=== PATIENT | female | born 1965 | race Caucasian/White ===

== ENCOUNTER 2022-10-31 11:49 | Outpatient (CLI) | payer SELFPAY ==
[2022-10-31 10:48] LABS: Albumin* 3.3 g/dL (3.3-5.0); Chloride* 99 mmol/L (96-114)
[2022-10-31 10:49] LABS: Potassium* 3.6 mmol/L (3.6-5.1); Sodium* 133 mmol/L (135-149)
[2022-10-31 10:51] LABS: Aspartate Amino Transferase* 25 U/L (12-35); Carbon Dioxide* 28 mmol/L (20-32); Cholesterol* 123 mg/dL (90-199); Creatinine* 0.4 mg/dL (0.5-1.5); Estimated Glomerular Filt Rate 117 ml/min; Total Protein* 6.6 g/dL (6.0-8.3)
[2022-10-31 10:52] LABS: Alanine Aminotransferase* 19 U/L (4-35); Alkaline Phosphatase* 80 U/L (40-150); Blood Urea Nitrogen* 9 mg/dL (7-30); Calcium* 9.1 mg/dL (8.4-10.6); Glucose* 182 mg/dL (60-115); HDL Cholesterol* 16 mg/dL (>=50); LDL Cholesterol Calculated 79 mg/dL (<100); Triglycerides* 142 mg/dL (40-149)
[2022-10-31 11:10] LABS: Creatinine Urine 97.1 mg/dL
[2022-10-31 11:14] LABS: Microalbumin Creatinine Ratio 60 mg/g (0-30); Microalbumin Urine 6 mg/dL
[2022-11-01 11:17] LABS: Free T4 Free Thyroxine* 1.43 ng/dL (0.70-1.85)
== END 2022-10-31 11:50 | disposition home or self-care (01) ==
PROVIDERS: PCP Family Medicine; Visit Provider Family Medicine
DX: E11.9 Type 2 diabetes mellitus without complications (principal); E03.9 Hypothyroidism, unspecified
CPT/HCPCS: 80053; 80061; 82043; 82570; 84439; 84443

== ENCOUNTER 2022-11-03 06:56 | Outpatient (CLI) | payer SELFPAY | END 2022-11-03 06:57 | disposition home or self-care (01) | LOC: AMB 11-07 09:14 | PROVIDERS: PCP Family Medicine; Visit Provider Family Medicine | DX: M79.604 Pain in right leg (principal) | CPT/HCPCS: A0425; A0427 ==

== ENCOUNTER 2022-11-03 07:30 | Inpatient (IN) | payer SELFPAY ==
[2022-11-03] VITALS (29 sets, daily range): BP systolic 76–120; BP diastolic 43–72; PULSE 89–110; RESP 16–20; TEMP 36.9–38.4; O2SAT 91–100; BMI 28.3; BMI 33.7
--- NOTE | 2022-11-03 08:23 | CRLHL7_ITS ---
For Patients: As a result of the Cures Act, medical imaging exams and procedure reports are released immediately into your electronic medical record. You may view this report before your referring provider. If you have questions, please contact your health care provider. Indication: Pain. Technique: A total of two views of the right knee were acquired. Comparison: None Findings: No acute fracture, dislocation destructive process. Mild osteoarthritis laterally, moderate osteoarthritis medially and moderate osteoarthritis in the superior patellofemoral compartment. Small joint effusion. Impression: Osteoarthritis most affecting the medial compartment. No acute fracture, dislocation or destructive process. Small joint effusion. Dictated by Rodger Pereyra MD @ 11/03/2022 9:49:16 AM (Electronically Signed)
--- NOTE | 2022-11-03 08:23 | CRLHL7_ITS ---
For Patients: As a result of the Cures Act, medical imaging exams and procedure reports are released immediately into your electronic medical record. You may view this report before your referring provider. If you have questions, please contact your health care provider. Indication: Pain and swelling right lower extremity Technique: Grayscale, grayscale compression, color Doppler, spectral Doppler and augmentation technique was utilized as per protocol to evaluate the right lower extremity deep venous system. Comparison: Findings: Occlusive thrombus is identified in both peroneal veins. Thrombus is also noted in the popliteal vein which is partially occlusive. Fluid is noted near the patella which is probably related to a joint effusion. Impression: Occlusive thrombus in both peroneal veins. Thrombus is also noted in the popliteal vein which is partially occlusive Dictated by Rodger Pereyra MD @ 11/03/2022 9:32:05 AM (Electronically Signed)
--- NOTE | 2022-11-03 08:23 | ED.GENADULT ---
HPI - General Adult General Time Seen by Provider: 08:23 Date Seen: 11/03/22 Chief complaint: Extremity Pain/Injury, Lower Stated complaint: Knee Pain Time Seen by Provider: 11/03/22 08:09 Source: patient, EMS and RN notes reviewed Mode of arrival: EMS Limitations: no limitations History of Present Illness HPI narrative: Patient is a 57-year-old female brought in by ambulance with knee pain. She states it is hurting to stand and bend the knee. It started hurting on Monday. She carries a diagnosis of arthritis in her neck but has not been told she has arthritis of her knee. She denies any trauma. Does not remember doing any twisting or anything that aggravated her knee. The pain goes from the knee down into the calf. She is worried about a blood clot. No shortness of breath. Her family is with her. Her daughter brings up that patient is developing an eating disorder and once this noted. Patient states she has just really not that hungry and states there is no eating disorder. Reviewed with them that this may be a whole separate non emergent medical issue. Patient's problem list is reviewed. Did discuss with them that they very well may need to follow up this separate issue in clinic which they do understand. As for her knee pain, no other joints are bothering her at this time. She feels like it might be swollen. There are no fevers or chills. Pain is not coming from the back. Related Data Home Medications Medication Instructions Recorded Confirmed aspirin 325 mg tablet,delayed 325 mg PO DAILY 06/13/22 11/03/22 release blood sugar diagnostic (Contour 06/13/22 Next Test Strips) blood-glucose meter (Contour Next 06/13/22 EZ Meter) glimepiride 1 mg tablet 1 mg PO DAILY 06/13/22 11/03/22 lancets 30 gauge (BD Ultra-Fine II 06/13/22 Lancets) metformin 500 mg tablet,extended 1,000 mg PO BIDWM 06/13/22 11/03/22 release 24 hr rosuvastatin 10 mg tablet 10 mg PO DAILY 06/13/22 11/03/22 levothyroxine 200 mcg tablet 200 mcg PO Q48H 11/03/22 11/03/22 levothyroxine 25 mcg tablet 12.5 mcg PO Q48H 11/03/22 11/03/22 Allergies Allergy/AdvReac Type Severity Reaction Status Date / Time No Known Allergies Allergy Unknown Unverified 10/31/22 15:57 Review of Systems Status of ROS: Reports: 6 or more systems reviewed and unremarkable except as noted in History and below [facility] Medical History Contusion of thorax Open wound of breast with complication (08/02/11) Surgical History History of 2 sections (2005) History of lumpectomy (2010) Family History Father Diabetes Throat cancer Brother Colon cancer Social History Narrative: Does not drink alcohol Does not have regular exercise regimen , 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, 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 Non-smoker Uninsured Smoking Status: Never smoker Do you use any of these nicotine containing products: None Non-prescribed substance use: denies use Exam Const: Vital Signs, click to edit/add: Vital Signs - 24 hr 11/03/22 07:54 11/03/22 08:24 11/03/22 07:40 Temperature 99.1 F Pulse Rate Pulse Rate [Right Pulse Oximeter] 108 H 110 H Respiratory Rate 16 Blood Pressure Blood Pressure [Le ft Upper Arm] 120/72 120/72 Pulse Oximetry 100 97 100 Oxygen Delivery Me thod Room Air Room Air 11/03/22 10:30 11/03/22 11:00 11/03/22 11:30 Temperature Pulse Rate Pulse Rate [Right Pulse Oximeter] 97 95 93 Respiratory Rate Blood Pressure Blood Pressure [Le ft Upper Arm] 98/61 95/48 L 95/59 L Pulse Oximetry 96 95 97 Oxygen Delivery Me thod Room Air Room Air Room Air 11/03/22 12:00 11/03/22 12:30 11/03/22 13:00 Temperature Pulse Rate Pulse Rate [Right Pulse Oximeter] 94 90 99 Respiratory Rate Blood Pressure Blood Pressure [Le ft Upper Arm] 92/53 L 89/60 L 111/60 Pulse Oximetry 96 96 96 Oxygen Delivery Me thod Room Air Room Air Room Air 11/03/22 13:12 11/03/22 13:30 11/03/22 13:32 Temperature Pulse Rate 95 93 92 Pulse Rate [Right Pulse Oximeter] Respiratory Rate Blood Pressure 84/47 L Blood Pressure [Le ft Upper Arm] Pulse Oximetry 97 98 98 Oxygen Delivery Me thod 11/03/22 14:00 11/03/22 14:01 11/03/22 14:03 Temperature Pulse Rate 92 92 92 Pulse Rate [Right Pulse Oximeter] Respiratory Rate Blood Pressure 76/43 L Blood Pressure [Le ft Upper Arm] Pulse Oximetry 97 97 98 Oxygen Delivery Me thod 11/03/22 14:08 11/03/22 14:09 11/03/22 14:30 Temperature Pulse Rate 91 91 89 Pulse Rate [Right Pulse Oximeter] Respiratory Rate Blood Pressure 77/49 L Blood Pressure [Le ft Upper Arm] Pulse Oximetry 97 97 98 Oxygen Delivery Me thod 11/03/22 14:31 Temperature Pulse Rate 90 Pulse Rate [Right Pulse Oximeter] Respiratory Rate Blood Pressure 79/47 L Blood Pressure [Le ft Upper Arm] Pulse Oximetry 98 Oxygen Delivery Me thod Documenting provider has reviewed patient's vital signs: yes Common normals: no apparent distress, oriented x3, no limitations, healthy appearing, alert and well nourished General appearance: cooperative, comfortable and well kempt Nutritional appearance: overweight HENMT: Common normals: normocephalic, head/scalp atraumatic and hearing grossly normal bilaterally Head and scalp: normocephalic and atraumatic Eye: Common normals: PERRL, EOMs intact bilaterally, conjunctivae normal and no scleral icterus Conjunctiva: conjunctiva(e) normal Pupil: PERRL Neck & C-Spine: Common normals: full ROM, no lymphadenopathy, supple, no meningeal signs, no JVD and thyroid normal Thyroid: thyroid normal Resp: Common normals: normal respiratory effort, no retractions, no use of accessory muscles and clear to auscultation bilaterally Auscultation: clear to auscultation bilaterally Cardio: Common normals: no JVD, regular rate, regular rhythm, S1 normal heart sound, S2 normal heart sound, no gallops, no clicks and no murmurs Rate: regular rate Rhythm: regular rhythm Heart sounds: S1 normal and S2 normal GI: Common normals: Normal to inspection, nondistended, normoactive bowel sounds present and soft to palpation Palpation: soft Extremity: Other: Both lower extremities visualized. There is no lower extremity edema, no pitting edema on either side. Negative Homans on the right calf. She complains of tenderness posteriorly with in the left popliteal fossa. She complains of pain with range of motion of the knee. I do not find any palpable knee effusion. The patella tracks intact and is nontender. There is no erythema, no warmth. Vascularity and sensation of this extremity seem to be normal. Neuro: Common normals: oriented x3 Sensorium/orientation: alert Meningeal signs: no meningeal signs Psych: Appearance: well kempt Course Course Hospital Course: Patient is worried about a blood clot, she cries and states that she is so worried. I reassured her that we will take care of her. Reviewed that I do think we should x-ray her knee. Reviewed that arthritis is a common finding in people an there can be flares with pain. We did talk of Blair's cyst. Certainly we will get an ultrasound. I think an x-ray and ultrasound are appropriate initial evaluation. She does not have any significant effusion on my examination which would make this less likely to be other etiologies for knee pain such is inflammatory arthritis outside of osteoarthritis, infectious etiologies. She is afebrile. Reevaluation(s) Reevaluation #1: Reviewed with patient that the radiologist had called me in there indeed is DVT within the right leg. He did see a joint effusion on the ultrasound but stated that he cannot tie that in with a DVT obviously. We are waiting her formal x-ray result of her knee, I do see some medial joint space narrowing but again will await Radiology over-read. She states she received morphine in the rig, pain is bothering her on the leg, is wondering if she will get pain meds on discharge. Did review with her that we can certainly address that. We did discuss she will need to go on blood thinners. We are going to do chest CT PE protocol, she was tachycardic when she came in and now was at rest in the upper 90s for pulse. Will get EKG, CBC and troponin, chest CT PE protocol. She has an IV in place from EMS. Reviewed her labs from October 31, chemistries specifically. Her creatinine was fine. Diabetes was not controlled. She states over the last month her vision has deteriorated, symmetric in her eyes. Reviewed with her it certainly could be uncontrolled diabetes. She will likely need an eye exam which I cannot provide here. Time: 09:44 Reevaluation #2: Reviewed cirrhosis on CT, no PE, she has known hx of fatty liver per report. Reviewed that certainly could be the cause but it is not certain at this point, will need to see GI specialist/liver specialist at some point, may end up being outpatient. Time: 12:47 Consultations Consultation #1: Spoke with Dr. Patino the manager hotel at [place] regarding case. He had some recommendations for further labs. He did want an LDH but reviewed with him it is a send out for us right now. He also recommended a peripheral smear. We discussed some other labs. I will update her liver and kidney functions for today. He was wondering if she might be a candidate for IVC filter, possibly tips procedure. He stated he wondered if there were further underlying issues with her. It is possible she is sequestering due to the portal hypertension in the splenomegaly but needed further labs. He would consider anticoagulation. We will get coags as those had not been ordered. We were not aware of her cirrhosis, this seems to be a new diagnosis for her. He recommended that she be hospitalized ideally where there was GI in multi-specialty care but to date, place as we have called cannot accommodate. Time: 12:49 Consultation #2: Did speak with Dr. Patino again, our hospitalist Dr. Galo was here. She wondered if the patient could go on Lovenox instead of heparin. He stated that would be fine. He recommended half dose Lovenox given her CBC though and to monitor this to see if she would tolerated. Besides the DVT, she may have some underlying splenic infarcts seen on her CT. We have called all appropriate higher level care facilities within are regions that we can safely transfer with our current whether cycle. There is no capacity at any of these institutions. Patient is aware that she is going to be hospitalized here. She has been complaining of leg pain, did give her pain management, some Ativan for anxiety during her time in the ER. Time: 15:35 Vital Signs Vital signs: Initial Vital Signs Pulse Rate 110 H 11/03/22 07:40 Blood Pressure 120/72 11/03/22 07:40 Blood Pressure Mean 88 11/03/22 07:40 Pulse Oximetry 100 11/03/22 07:40 Oxygen Delivery Method 11/03/22 07:40 Vital Signs Pulse Rate 110 H 11/03/22 07:40 Blood Pressure 120/72 11/03/22 07:40 Pulse Oximetry 100 11/03/22 07:40 Oxygen Delivery Method 11/03/22 07:40 Temperature 99.1 F 11/03/22 07:54 Pulse Rate 90 11/03/22 14:31 Respiratory Rate 16 11/03/22 07:54 Blood Pressure 79/47 L 11/03/22 14:31 Pulse Oximetry 98 11/03/22 14:31 Oxygen Delivery Method 11/03/22 13:00 Medical Decision Making Lab Data Lab results reviewed: Yes I reviewed the patient's lab results Labs: Lab Results 11/03/22 11/03/22 11/03/22 Range/Units 10:12 10:12 10:12 WBC 4.72 (4.50-11.00) K/uL RBC 3.65 L (4.00-5.20) m/uL Hgb 8.4 L (12.0-16.0) gm/dL Hct 27.1 L (33.0-51.0) % MCV 74 L (80-100) fL MCH 23 L (26-34) pg MCHC 31 L (32-36) gm/dL RDW Coeff of Brandi 18.2 H (11.5-15.5) % Plt Count 54 L (140-440) K/uL Neut % (Auto) 83.8 H (42.0-72.0) % Lymph % (Auto) 9.1 L (20-44) % [place] % (Auto) 5.7 (0.0-11.0) % Eos % (Auto) 0.4 (0.0-7.0) % Baso % (Auto) 0.6 (0.0-3.0) % Neut # (Auto) 4.00 (1.7-7.0) K/uL Lymph # (Auto) 0.40 L (0.90-2.90) K/uL [place] # (Auto) 0.30 (0.00-0.90) K/UL Eos # (Auto) 0.02 (0.00-0.50) K/uL Baso # (Auto) 0.03 (0.00-0.30) K/uL Absolute Retic 0.08 (0.03-0.08) # Percent Retic 2.2 H (0.5-2.0) % Immature Retic Fraction 23.7 H (3.0-15.9) % Retic Hgb Equivalent 25.1 L (29.0-35.0) pg INR (0.91-1.10) APTT (23-33) Seconds Iron (37-170) ug/dL TIBC (265-497) ug/dL % Saturation (20-50) % Ferritin 89.1 (11.1-264.0) ng/mL Total Bilirubin (0.1-1.5) mg/dL Direct Bilirubin (0.0-0.5) mg/dL AST (12-35) U/L ALT (4-35) U/L Alkaline Phosphatase (40-150) U/L Ammonia (13.1-30.0) umol/L Lactate Dehydrogenase (120-246) U/L Total Protein (6.0-8.3) g/dL Albumin (3.3-5.0) g/dL SARS-CoV-2 (PCR) (Negative) POC Troponin I 0.01 (0.01-0.04) ng/ml 11/03/22 11/03/22 11/03/22 Range/Units 10:12 10:12 10:12 WBC (4.50-11.00) K/uL RBC (4.00-5.20) m/uL Hgb (12.0-16.0) gm/dL Hct (33.0-51.0) % MCV (80-100) fL MCH (26-34) pg MCHC (32-36) gm/dL RDW Coeff of Brandi (11.5-15.5) % Plt Count (140-440) K/uL Neut % (Auto) (42.0-72.0) % Lymph % (Auto) (20-44) % [place] % (Auto) (0.0-11.0) % Eos % (Auto) (0.0-7.0) % Baso % (Auto) (0.0-3.0) % Neut # (Auto) (1.7-7.0) K/uL Lymph # (Auto) (0.90-2.90) K/uL [place] # (Auto) (0.00-0.90) K/UL Eos # (Auto) (0.00-0.50) K/uL Baso # (Auto) (0.00-0.30) K/uL Absolute Retic (0.03-0.08) # Percent Retic (0.5-2.0) % Immature Retic Fraction (3.0-15.9) % Retic Hgb Equivalent (29.0-35.0) pg INR (0.91-1.10) APTT (23-33) Seconds Iron 11 L (37-170) ug/dL TIBC 314 (265-497) ug/dL % Saturation 4 L (20-50) % Ferritin (11.1-264.0) ng/mL Total Bilirubin 1.2 (0.1-1.5) mg/dL Direct Bilirubin 0.6 H (0.0-0.5) mg/dL AST 82 H (12-35) U/L ALT 34 (4-35) U/L Alkaline Phosphatase 87 (40-150) U/L Ammonia 10.0 L (13.1-30.0) umol/L Lactate Dehydrogenase (120-246) U/L Total Protein 6.1 (6.0-8.3) g/dL Albumin 2.9 L (3.3-5.0) g/dL SARS-CoV-2 (PCR) (Negative) POC Troponin I (0.01-0.04) ng/ml 11/03/22 11/03/22 11/03/22 Range/Units 10:12 12:00 12:58 WBC (4.50-11.00) K/uL RBC (4.00-5.20) m/uL Hgb (12.0-16.0) gm/dL Hct (33.0-51.0) % MCV (80-100) fL MCH (26-34) pg MCHC (32-36) gm/dL RDW Coeff of Brandi (11.5-15.5) % Plt Count (140-440) K/uL Neut % (Auto) (42.0-72.0) % Lymph % (Auto) (20-44) % [place] % (Auto) (0.0-11.0) % Eos % (Auto) (0.0-7.0) % Baso % (Auto) (0.0-3.0) % Neut # (Auto) (1.7-7.0) K/uL Lymph # (Auto) (0.90-2.90) K/uL [place] # (Auto) (0.00-0.90) K/UL Eos # (Auto) (0.00-0.50) K/uL Baso # (Auto) (0.00-0.30) K/uL Absolute Retic (0.03-0.08) # Percent Retic (0.5-2.0) % Immature Retic Fraction (3.0-15.9) % Retic Hgb Equivalent (29.0-35.0) pg INR 1.43 H (0.91-1.10) APTT 37 H (23-33) Seconds Iron (37-170) ug/dL TIBC (265-497) ug/dL % Saturation (20-50) % Ferritin (11.1-264.0) ng/mL Total Bilirubin (0.1-1.5) mg/dL Direct Bilirubin (0.0-0.5) mg/dL AST (12-35) U/L ALT (4-35) U/L Alkaline Phosphatase (40-150) U/L Ammonia (13.1-30.0) umol/L Lactate Dehydrogenase 194 (120-246) U/L Total Protein (6.0-8.3) g/dL Albumin (3.3-5.0) g/dL SARS-CoV-2 (PCR) Negative SARS-CoV-2 (Negative) POC Troponin I (0.01-0.04) ng/ml Imaging Data Venous US: Attestation: I have reviewed the pertinent imaging results. Radiologist's impression: Patient: HEATHER DELAROSA Facility:?[facility] Patient ID:?[id number] Site Patient ID:?[id number]. Site :?[id number] Study:?US Extremity Right DVT-11/03/2022 9:20:00 AM Ordering Physician:?Mirza Daily Final Report: Indication: Pain and swelling right lower extremity Technique: Grayscale, grayscale compression, color Doppler, spectral Doppler and augmentation technique was utilized as per protocol to evaluate the right lower extremity deep venous system. Comparison: Findings: Occlusive thrombus is identified in both peroneal veins. Thrombus is also noted in the popliteal vein which is partially occlusive. Fluid is noted near the patella which is probably related to a joint effusion. Impression: Occlusive thrombus in both peroneal veins. Thrombus is also noted in the popliteal vein which is partially occlusive Dictated by Rodger Pereyra MD @ 11/03/2022 9:32:05 AM ----- ADDENDUM ----- I discussed this case with at 9:35 a.m. on November 03, 2022. Dictated by Rodger Pereyra MD @ Nov 03 2022 9:32AM (Electronic Signature) X-ray right knee: Attestation: I have reviewed the pertinent imaging results. My impression: I see medial joint space narrowing on my preliminary review of this x-ray, otherwise no fracture or other abnormalities. Await Radiology over-read. Radiologist's impression: Patient: HEATHER DELAROSA Facility:?[facility] Patient ID:?[id number] Site Patient ID:?[id number]. Site :?1965 Study:?XRay Knee Right 2v-11/03/2022 9:31:32 AM Ordering Physician:Fatoumata Daily Final Report: Indication: Pain. Technique: A total of two views of the right knee were acquired. Comparison: None Findings: No acute fracture, dislocation destructive process. Mild osteoarthritis laterally, moderate osteoarthritis medially and moderate osteoarthritis in the superior patellofemoral compartment. Small joint effusion. Impression: Osteoarthritis most affecting the medial compartment. No acute fracture, dislocation or destructive process. Small joint effusion. Dictated by Rodger Pereyra MD @ 11/03/2022 9:49:16 AM (Electronic Signature) CT scan - chest: Attestation: I have reviewed the pertinent imaging results. Radiologist's impression: Patient: HEATHER DELAROSA Facility:?[facility] Patient ID:?[id number] Site Patient ID:?[id number]. Site :?1965 Study:?CT Chest Angio PE PROTOCOL W/95CC [id number]/22/2022 11:06:57 AM Ordering Physician:?Mirza Daily Final Report: INDICATION: New onset DVT; tachycardia; rule out PE. COMPARISON: CT chest without intravenous contrast October 16, 2019. TECHNIQUE: CT chest with intravenous contrast; coronal and sagittal reformats. FINDINGS: No evidence of acute or chronic pulmonary thromboembolism. No evidence of aortic aneurysm or dissection. Normal size cardiac silhouette without any pericardial effusion. No evidence of pleural effusion or chest wall pathology. No endobronchial pathology. Limited CT through the upper abdomen reveals evidence of splenomegaly and large volume abdominal ascites. Hydronephrosis right kidney. IMPRESSION: 1. No evidence of pulmonary thromboembolism. 2. Large volume abdominal ascites, splenomegaly and right-sided hydronephrosis. Please note that all CT scans at this facility use dose modulation, iterative reconstruction, and/or weight-based dosing when appropriate to reduce radiation dose to as low as reasonably achievable. Dictated by Trina Charles MD @ 11/03/2022 11:53:59 AM (Electronic Signature) CT scan - abdomen: Attestation: I have reviewed the pertinent imaging results. Radiologist's impression: Patient: HEATHER DELAROSA Facility:?[facility] Patient ID:?[id number] Site Patient ID:?[id number]. Site :?1965 Study:?CT Abdomen/Pelvis W/O-11/03/2022 11:35:49 AM Ordering Physician:?Mirza Daily Final Report: INDICATION: Anemia; anorexia; DVTs; history of cancer. COMPARISON: CT abdomen and pelvis October 16, 2019; CT chest October 16, 2019 and November 03, 2022. TECHNIQUE: CT abdomen and pelvis with intravenous contrast; coronal and sagittal reformats. FINDINGS: Progressive splenomegaly. Multiple low dense lesions identified in the periphery of the spleen; rule out splenic infarcts. Cirrhotic morphology of the liver with evidence of portal hypertension and varices. Abdominal ascites. No pancreatic pathology. Distended gallbladder with cholelithiasis. No adrenal pathology. Hydronephrosis right kidney with hydroureter upper have right ureter. A 9.7 mm obstructing calculus right mid ureter causing the hydronephrosis; no interval change when compared to October 2019. Left kidney is normal in structure and function without any obstructive uropathy or perinephric pathology. No retroperitoneal lymphadenopathy. Diverticulosis sigmoid colon without any CT evidence of diverticulitis or abscess. IMPRESSION: 1. Cirrhotic morphology of the liver with evidence of portal hypertension and portosystemic communication. 2. Splenomegaly possibly with splenic infarcts. 3. Abdominal and pelvic ascites. 4. 10 mm obstructing calculus right mid ureter causing hydronephrosis and hydroureter; stable when compared to October 16, 2019. Please note that all CT scans at this facility use dose modulation, iterative reconstruction, and/or weight-based dosing when appropriate to reduce radiation dose to as low as reasonably achievable. Dictated by Trina Charles MD @ 11/03/2022 12:15:51 PM (Electronic Signature) ECG Data Attestation: I personally reviewed and interpreted this ECG as follows: (Normal sinus rhythm, right bundle branch block. 97 beats per minute, QT corrected 492 milliseconds.) Prior ECG tracings: not available for review Critical Care Time Critical Care Time Critical Care Time: No Discharge Plan Discharge Clinical Impression: Anemia, Cirrhosis of liver with ascites, Thrombocytopenia, Acute deep vein thrombosis (DVT) of right lower extremity Patient Disposition: Admitted As Inpatient Condition: Unchanged Prescriptions: No Action levothyroxine 25 mcg tablet 12.5 mcg PO Q48H Rx Instructions: Use with 200mcg tabs for total every other day dose of 212.5mcg. levothyroxine 200 mcg tablet 200 mcg PO Q48H Rx Instructions: Use with 12.5mcg tabs every other day for total daily dose of 212.5mcg. glimepiride 1 mg tablet 1 mg PO DAILY metformin 500 mg tablet extended release 24 hr 1,000 mg PO BIDWM rosuvastatin 10 mg tablet 10 mg PO DAILY aspirin 325 mg tablet,delayed release (DR/EC) 325 mg PO DAILY (DME) lancets [BD Ultra-Fine II Lancets] 30 gauge misc See Rx Instructions .ROUTE Rx Instructions: As directed (DME) blood-glucose meter [Contour Next EZ Meter] Misc See Rx Instructions .ROUTE Rx Instructions: As directed (DME) Contour Next Test Strips Strip See Rx Instructions .ROUTE Rx Instructions: As directed Follow Up/Referrals: Viky Gan MD [Primary Care Provider] -
--- NOTE | 2022-11-03 09:39 | CRLHL7_ITS ---
For Patients: As a result of the Century Cures Act, medical imaging exams and procedure reports are released immediately into your electronic medical record. You may view this report before your referring provider. If you have questions, please contact your health care provider. INDICATION: New onset DVT; tachycardia; rule out PE. COMPARISON: CT chest without intravenous contrast October 16, 2019. TECHNIQUE: CT chest with intravenous contrast; coronal and sagittal reformats. FINDINGS: No evidence of acute or chronic pulmonary thromboembolism. No evidence of aortic aneurysm or dissection. Normal size cardiac silhouette without any pericardial effusion. No evidence of pleural effusion or chest wall pathology. No endobronchial pathology. Limited CT through the upper abdomen reveals evidence of splenomegaly and large volume abdominal ascites. Hydronephrosis right kidney. IMPRESSION: 1. No evidence of pulmonary thromboembolism. 2. Large volume abdominal ascites, splenomegaly and right-sided hydronephrosis. Please note that all CT scans at this facility use dose modulation, iterative reconstruction, and/or weight-based dosing when appropriate to reduce radiation dose to as low as reasonably achievable. Dictated by Trina Charles MD @ 11/03/2022 11:53:59 AM (Electronically Signed)
[2022-11-03 10:22] LABS: Basophils Absolute Auto 0.03 K/uL (0.00-0.30); Basophils Percent Auto 0.6 % (0.0-3.0); Eosinophils Absolute Auto 0.02 K/uL (0.00-0.50); Eosinophils Percent Auto 0.4 % (0.0-7.0); Hematocrit 27.1 % (33.0-51.0); Hemoglobin* 8.4 gm/dL (12.0-16.0); Immature Granulocytes Abs Auto 0.02 K/uL (0.00-0.30); Immature Granulocytes Pct Auto 0.4 %; Lymphocytes Percent Auto 9.1 % (20-44); Mean Corpuscular HGB Conc 31 gm/dL (32-36); Mean Corpuscular Hemoglobin 23 pg (26-34); Mean Corpuscular Volume 74 fL (80-100); Monocytes Percent Auto 5.7 % (0.0-11.0); Neutrophils Percent Auto 83.8 % (42.0-72.0); Platelet Count* 54 K/uL (140-440); RDW Coefficient of Variation % 18.2 % (11.5-15.5); Red Blood Count 3.65 m/uL (4.00-5.20); White Blood Count* 4.72 K/uL (4.50-11.00)
[2022-11-03 10:23] LABS: Slide Review Reflex No
[2022-11-03] MEDS: LORazepam 2 MG/ML inj 0.5 MG IVP ×2 (10:28→15:35)
[2022-11-03] MEDS: ONDANSETRON 2 MG/ML inj 4 MG IVP (10:28)
[2022-11-03] MEDS: MORPHINE 4 MG/ML INJ 2 MG IVP (10:31)
--- NOTE | 2022-11-03 11:06 | CRLHL7_ITS ---
For Patients: As a result of the Century Cures Act, medical imaging exams and procedure reports are released immediately into your electronic medical record. You may view this report before your referring provider. If you have questions, please contact your health care provider. INDICATION: Anemia; anorexia; DVTs; history of cancer. COMPARISON: CT abdomen and pelvis October 16, 2019; CT chest October 16, 2019 and November 03, 2022. TECHNIQUE: CT abdomen and pelvis with intravenous contrast; coronal and sagittal reformats. FINDINGS: Progressive splenomegaly. Multiple low dense lesions identified in the periphery of the spleen; rule out splenic infarcts. Cirrhotic morphology of the liver with evidence of portal hypertension and varices. Abdominal ascites. No pancreatic pathology. Distended gallbladder with cholelithiasis. No adrenal pathology. Hydronephrosis right kidney with hydroureter upper have right ureter. A 9.7 mm obstructing calculus right mid ureter causing the hydronephrosis; no interval change when compared to October 2019. Left kidney is normal in structure and function without any obstructive uropathy or perinephric pathology. No retroperitoneal lymphadenopathy. Diverticulosis sigmoid colon without any CT evidence of diverticulitis or abscess. IMPRESSION: 1. Cirrhotic morphology of the liver with evidence of portal hypertension and portosystemic communication. 2. Splenomegaly possibly with splenic infarcts. 3. Abdominal and pelvic ascites. 4. 10 mm obstructing calculus right mid ureter causing hydronephrosis and hydroureter; stable when compared to October 16, 2019. Please note that all CT scans at this facility use dose modulation, iterative reconstruction, and/or weight-based dosing when appropriate to reduce radiation dose to as low as reasonably achievable. Dictated by Trina Charles MD @ 11/03/2022 12:15:51 PM (Electronically Signed)
[2022-11-03 11:10] LABS: Iron* 11 ug/dL (37-170)
[2022-11-03 11:19] LABS: Percent Iron Saturation 4 % (20-50); Total Iron Binding Capacity 314 ug/dL (265-497)
[2022-11-03 11:47] LABS: Ferritin* 89.1 ng/mL (11.1-264.0)
[2022-11-03 12:45] LABS: SARS PCR* Negative SARS-CoV-2 (Negative)
[2022-11-03 13:00] LABS: Troponin, Point-of-Care* 0.01 ng/ml (0.01-0.04)
[2022-11-03 13:09] LABS: INR 1.43 (0.91-1.10); Immature Reticulocyte Fraction 23.7 % (3.0-15.9); Prothrombin Time 18.2 Seconds; Reticulocyte Hemoglobin Equivi 25.1 pg (29.0-35.0); Reticulocyte Percent 2.2 % (0.5-2.0); Reticulocytes Absolute 0.08 # (0.03-0.08)
[2022-11-03 13:21] LABS: Albumin* 2.9 g/dL (3.3-5.0)
[2022-11-03 13:23] LABS: Aspartate Amino Transferase* 82 U/L (12-35); Bilirubin Direct* 0.6 mg/dL (0.0-0.5); Bilirubin Total* 1.2 mg/dL (0.1-1.5); Total Protein* 6.1 g/dL (6.0-8.3)
[2022-11-03 13:24] LABS: Alanine Aminotransferase* 34 U/L (4-35); Alkaline Phosphatase* 87 U/L (40-150)
[2022-11-03 13:32] LABS: Partial Thromboplastin Time* 37 Seconds (23-33)
[2022-11-03 13:38] LABS: Lactate Dehydrogenase* 194 U/L (120-246)
[2022-11-03] MEDS: 0.9 % SODIUM CHLORIDE 500 ML 500 ML IV (14:10)
--- NOTE | 2022-11-03 14:10 | ED.NURSE ---
Pt BP's noted to be trending lower. MD notified, fluid bolus ordered and started.
--- NOTE | 2022-11-03 15:25 | ED.NURSE ---
Pt requesting to reposition due to discomfort. Pt reporting extreme pain but unable to explain how she wants to reposition for comfort. Pt repositioned into left lateral position. Pt yelling and screaming in pain during reposition, did not tolerate repositioning well. Continuing to request another change in position. Pt assisted to sit at the bedside, continuing to scream and yell. Pt assisted to sit in recliner, continues to scream and yell in pain. Pt able to move with assist of two to sit in recliner, very poor ambulation tolerance. aware.
[2022-11-03] MEDS: OXYCODONE 5 MG TABLET PO ×2 (15:40→20:23)
[2022-11-03 15:52] LABS: Chloride* 101 mmol/L (96-114); Sodium* 130 mmol/L (135-149)
[2022-11-03 15:53] LABS: Potassium* 3.3 mmol/L (3.6-5.1)
[2022-11-03 15:55] LABS: Creatinine* 0.7 mg/dL (0.5-1.5); Est. Creatinine Clearance* 78.41; Estimated Glomerular Filt Rate 102 ml/min
[2022-11-03 15:56] LABS: Blood Urea Nitrogen* 20 mg/dL (7-30); Calcium* 9.2 mg/dL (8.4-10.6); Carbon Dioxide* 22 mmol/L (20-32); Glucose* 180 mg/dL (60-115)
[2022-11-03] MEDS: ENOXAPARIN 80 MG/0.8 ML INJ 70 MG SUBCUT (15:58)
--- NOTE | 2022-11-03 16:02 | ED.NURSE ---
Report called to M/S RN.
--- NOTE | 2022-11-03 16:28 | PM.IMHP1 ---
Hospitalist- H&P: HPI History of Present Illness Date Seen: 11/03/22 Chief complaint: Knee Pain Narrative: Bryanna Simmons is a 57 year old female who was BIBA to the emergency room today for right knee pain. Pain started yesterday in increased past 24 hours. She was unable to control it with rest and Motrin; today she was unable to ambulate given discomfort. She has no self or family history of blood clots. She has not had any fevers. ER course and findings: - ultrasound reveals occlusive thrombus in both peroneal veins of the right extremity; thrombus also noted in popliteal vein which was partially occlusive - CT chest then obtained to evaluate for PE. This was negative for PE but exhibited ascites and hepatic abnormalities - CT Ab/Pelvis then obtained: Cirrhotic morphology of the liver with evidence of portal HTN, splenomegaly with possible splenic infarcts, ascites, chronic 10 mm obstructive calculus right mid ureter - platelets 54, hemoglobin 8.4 with decreased MCV, elevated reticulocyte count - INR 1.3, bilirubin 1.2, sodium 130 and potassium 3.3. Ammonia low - given thrombosis and thrombocytopenia, Dr. De Leon in the ED reviewed case with metal milling machine operator at [facility] to discuss IVC filter. Unfortunately, no tertiary care beds available in our transfer radius at this time - Given 1mg/kg Lovenox in ED prior to transfer to the floor On further questioning, patient has felt ill for the past month or so, worse in the last few days. She initially had a COVID infection, followed by influenza. She then had shingles on her R upper thigh, which has now resolved. Throughout this time frame she has been very weak, fatigued and diffusely achy (achiness more notable in left shoulder and right distal forearm). She has not been sleeping well secondary to discomfort. She has not been eating well over the past couple of weeks, and feels abdominal bloating. Patient's past medical history significant for [id number] DM2. Her compliance has been limited by financial constraints; A1c is typically in the 10 range. She also has remote history of infiltrating ductal carcinoma of the right breast and Graves disease, status post radioiodine. Bryanna lives with family locally; has 2 adult daughters. She runs [employer]. She is a nonsmoker, nonalcohol user. Review of Systems Status of ROS: Reports: 10 or more systems reviewed and unremarkable except as noted in History and below Narrative: Throughout her recent month of illness, patient has noted intermittently blurry vision. She has not had any chest pain or dyspnea. She has not had any melena or hematochezia. She has had anorexia, but no nausea or vomiting. [facility] Medical History (Updated 11/03/22 @ 22:06 by Keiko Galo MD) Contusion of thorax Dyslipidemia (04/2019) Hypothyroid Malignant neoplasm of breast (2010) Obesity with body mass index (BMI) of 30.0 to 39.9 Open wound of breast with complication (08/02/11) Right nephrolithiasis Type 2 diabetes mellitus with albuminuria Surgical History History of 2 sections (2005) History of lumpectomy (2010) Family History Father Diabetes Throat cancer Brother Colon cancer Social History (Updated 11/03/22 @ 21:54 by Keiko Galo MD) Narrative: Does not drink alcohol Does not have regular exercise regimen , 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 2 adult daughters Nonsmoker Uninsured Highest level of school completed/degree received: some college, no degree Smoking Status: Never smoker Do you use any of these nicotine containing products: None Second hand tobacco smoke exposure: No How often do you have a drink containing alcohol: never AUDIT-C Alcohol total score: 0 Non-prescribed substance use: denies use Caffeine: No service: No Meds Home Medications and Allergies Home Medications Medication Instructions Recorded Confirmed Type aspirin 325 mg tablet,delayed 325 mg PO DAILY 06/13/22 11/03/22 History release blood sugar diagnostic (Contour 06/13/22 History Next Test Strips) blood-glucose meter (Contour Next 06/13/22 History EZ Meter) glimepiride 1 mg tablet 1 mg PO DAILY 06/13/22 11/03/22 History lancets 30 gauge (BD Ultra-Fine II 06/13/22 History Lancets) metformin 500 mg tablet,extended 1,000 mg PO BIDWM 06/13/22 11/03/22 History release 24 hr rosuvastatin 10 mg tablet 10 mg PO DAILY 06/13/22 11/03/22 History levothyroxine 200 mcg tablet 200 mcg PO Q48H 11/03/22 11/03/22 History levothyroxine 25 mcg tablet 12.5 mcg PO Q48H 11/03/22 11/03/22 History Allergies Allergy/AdvReac Type Severity Reaction Status Date / Time No Known Allergies Allergy Unknown Unverified 10/31/22 15:57 Exam Narrative: Exam Narrative: GEN: Alert and appears quite ill well sitting in bed. She is able to answer questions appropriately HEENT: Normal external ears, EOMIs bilaterally, no scleral icterus, + or conjunctival pallor CV: RRR, soft systolic murmur noted R: LCTA bilaterally without concerning wheezing, rales, or rhonchi Abdomen: Positive distension and fluid wave, difficult to evaluate for hepatosplenomegaly given edema and habitus Ext: 2+ pitting edema bilateral ankles, + Homans sign on right Skin: Patient has a linear hematoma on the pad of her right thumb. This area is tender to palpation without crepitus. She also has a small area of faint erythema and warmth over distal right forearm that is tender to palpation. No crepitus noted in this region. No other skin lesions noted on exposed skin Neuro: No resting tremor, no focal deficits, gait not observed Psych: Tearful while discussing how poorly she feels, appropriate Const: Vital Signs, click to edit/add: Vital Signs - 24 hr 11/03/22 07:54 11/03/22 08:24 11/03/22 07:40 Temperature 99.1 F Pulse Rate Pulse Rate [Right Pulse Oximeter] 108 H 110 H Respiratory Rate 16 Blood Pressure Blood Pressure [Le ft Upper Arm] 120/72 120/72 Pulse Oximetry 100 97 100 Oxygen Delivery Me thod Room Air Room Air 11/03/22 10:30 11/03/22 11:00 11/03/22 11:30 Temperature Pulse Rate Pulse Rate [Right Pulse Oximeter] 97 95 93 Respiratory Rate Blood Pressure Blood Pressure [Le ft Upper Arm] 98/61 95/48 L 95/59 L Pulse Oximetry 96 95 97 Oxygen Delivery Me thod Room Air Room Air Room Air 11/03/22 12:00 11/03/22 12:30 11/03/22 13:00 Temperature Pulse Rate Pulse Rate [Right Pulse Oximeter] 94 90 99 Respiratory Rate Blood Pressure Blood Pressure [Le ft Upper Arm] 92/53 L 89/60 L 111/60 Pulse Oximetry 96 96 96 Oxygen Delivery Me thod Room Air Room Air Room Air 11/03/22 13:12 11/03/22 13:30 11/03/22 13:32 Temperature Pulse Rate 95 93 92 Pulse Rate [Right Pulse Oximeter] Respiratory Rate Blood Pressure 84/47 L Blood Pressure [Le ft Upper Arm] Pulse Oximetry 97 98 98 Oxygen Delivery Me thod 11/03/22 14:00 11/03/22 14:01 11/03/22 14:03 Temperature Pulse Rate 92 92 92 Pulse Rate [Right Pulse Oximeter] Respiratory Rate Blood Pressure 76/43 L Blood Pressure [Le ft Upper Arm] Pulse Oximetry 97 97 98 Oxygen Delivery Me thod 11/03/22 14:08 11/03/22 14:09 11/03/22 14:30 Temperature Pulse Rate 91 91 89 Pulse Rate [Right Pulse Oximeter] Respiratory Rate Blood Pressure 77/49 L Blood Pressure [Le ft Upper Arm] Pulse Oximetry 97 97 98 Oxygen Delivery Me od 11/03/22 14:31 11/03/22 14:32 11/03/22 15:00 Temperature Pulse Rate 90 90 95 Pulse Rate [Right Pulse Oximeter] Respiratory Rate Blood Pressure 79/47 L Blood Pressure [Le ft Upper Arm] Pulse Oximetry 98 98 97 Oxygen Delivery Me od 11/03/22 15:01 11/03/22 15:30 11/03/22 15:42 Temperature Pulse Rate 92 95 89 Pulse Rate [Right Pulse Oximeter] Respiratory Rate Blood Pressure 83/48 L 96/55 L Blood Pressure [Le ft Upper Arm] Pulse Oximetry 100 98 97 Oxygen Delivery Me od Hospitalist - H&P: Result Labs Labs: Short CBC 11/03/22 Range/Units 10:12 WBC 4.72 (4.50-11.00) K/uL Hgb 8.4 L (12.0-16.0) gm/dL Hct 27.1 L (33.0-51.0) % Plt Count 54 L (140-440) K/uL BMP 11/03/22 13:03 Sodium 130 L Potassium 3.3 L Chloride 101 Carbon Dioxide 22 BUN 20 Creatinine 0.7 Glucose 180 H Calcium 9.2 Liver Function 11/03/22 Range/Units 10:12 Total Bilirubin 1.2 (0.1-1.5) mg/dL Direct Bilirubin 0.6 H (0.0-0.5) mg/dL AST 82 H (12-35) U/L ALT 34 (4-35) U/L Alkaline Phosphatase 87 (40-150) U/L Albumin 2.9 L (3.3-5.0) g/dL Assessment and Plan Assessment and plan (1) Acute deep vein thrombosis (DVT) of right lower extremity: Problem comment: - Lovenox 1 mg/kg given in ED - further anticoagulation to be ordered in the morning pending hemoglobin, platelets, and clinical course Status: Acute (2) Cirrhosis of liver with ascites: Problem comment: - source unclear, likely IBARRA given DM2 history Status: Acute (3) Cellulitis of upper extremity: Problem comment: - continue to follow clinically, on IV antibiotics - negative ultrasound for DVT/abscess in RUE Status: Acute (4) Splenomegaly: Problem comment: - with possible splenic infarction Status: Acute (5) Graves' disease: Problem comment: - 1994, s/p radioiodine tx Status: Acute (6) Thrombocytopenia: Problem comment: - no evidence of spontaneous bleeding on Thanksgiving Status: Acute (7) Microcytic anemia: Problem comment: - peripheral smear ordered in ED, pending - source unclear; possible hemolytic given splenomegaly and increased reticulocyte count (normal LDH, haptoglobin pending) Status: Acute (8) Hypotension: Problem comment: - concerning for sepsis vs related to other acute findings - ddx for infectious source: Endocarditis vs RUE cellulitis vs chronic obstructing nephrolithiasis - elevated procalcitonin, normal lactate, elevated temperature - blood cultures pending, Zosyn and Vancomycin initiated 11/03 Status: Acute (9) Right nephrolithiasis: Problem comment: - noted on 11/03 imagin mm obstructing calculus right mid ureter causing hydronephrosis and hydroureter; stable when compared to October 16, 2019 Status: Acute Plan - admit to CCU - trend hemoglobin, LFTs, inflammatory markers, and platelets - reassess anticoagulation plan verses IVC filter pending clinical course and bed availability at tertiary care facilities - TTE - Vancomycin and Zosyn while we await blood and urine culture results - IV fluid boluses as needed for hypotension; addition of albumin as needed - Reviewed case and plan of care with Dr. Snyder, Guest Experience Representative at [facility]; will continue to assess need to higher level of care/transfer with their team - Family updated at bedside, questions answered
--- NOTE | 2022-11-03 17:09 | CRLHL7_ITS ---
For Patients: As a result of the Century Cures Act, medical imaging exams and procedure reports are released immediately into your electronic medical record. You may view this report before your referring provider. If you have questions, please contact your health care provider. INDICATION: Right upper extremity pain and redness. COMPARISON: None. TECHNIQUE: A compression venous ultrasound exam was performed of the right upper extremity using zee-scale imaging, color Doppler, and spectral Doppler analysis. FINDINGS: Sonographic imaging of the right upper extremity demonstrates normal compressibility and color Doppler venous blood flow within the internal jugular, subclavian, axillary, brachial, basilic, cephalic, radial, and ulnar veins. IMPRESSION: Negative for acute DVT in the right upper extremity. Dictated by Lila Strong MD @ 11/03/2022 7:40:19 PM (Electronically Signed)
[2022-11-03] MEDS: 0.9 % SODIUM CHLORIDE 1000 ml 1,000 ML 500 ML IV (17:25)
[2022-11-03] MEDS: PANTOPRAZOLE SODIUM 40 MG INJ IVP (17:33)
[2022-11-03 17:37] LABS: Lactate* 1.7 mmol/L (0.5-1.9)
[2022-11-03 18:17] LABS: Procalcitonin* 9.14 ng/mL (<0.50)
[2022-11-03 19:29] LABS: Basophils Absolute Auto 0.02 K/uL (0.00-0.30); Basophils Percent Auto 0.4 % (0.0-3.0); Eosinophils Absolute Auto 0.02 K/uL (0.00-0.50); Eosinophils Percent Auto 0.4 % (0.0-7.0); Hematocrit 27.1 % (33.0-51.0); Hemoglobin* 8.5 gm/dL (12.0-16.0); Immature Granulocytes Abs Auto 0.02 K/uL (0.00-0.30); Immature Granulocytes Pct Auto 0.4 %; Lymphocytes Percent Auto 7.2 % (20-44); Mean Corpuscular HGB Conc 31 gm/dL (32-36); Mean Corpuscular Hemoglobin 23 pg (26-34); Mean Corpuscular Volume 75 fL (80-100); Monocytes Percent Auto 9.4 % (0.0-11.0); Neutrophils Percent Auto 82.2 % (42.0-72.0); RDW Coefficient of Variation % 18.2 % (11.5-15.5); Red Blood Count 3.63 m/uL (4.00-5.20); White Blood Count* 4.88 K/uL (4.50-11.00)
[2022-11-03 19:33] LABS: Platelet Count* 58 K/uL (140-440); Slide Review Reflex No
[2022-11-03] MEDS: PIPERACILLIN/TAZOBACTAM 3.375 GM in 0.9 % SODIUM CHLORIDE Mini-bag 100 ML IVPB (20:44)
[2022-11-03 21:51] LABS: Hemoglobin A1C* 9.51 % (0-5.6)
[2022-11-03 21:52] LABS: Appearance Urine Clear (Clear); Bilirubin Urine Negative (Negative); Blood Urine Trace-intact (Negative); Color Urine Yellow (Yellow); Glucose Urine Negative (Negative); Ketones Urine Trace (Negative); Leukocyte Esterase Urine Negative (Negative); Nitrite Urine Negative (Negative); Protein Urine 1+ (Negative); pH Urine 5.5 (5.0-8.5)
[2022-11-03 22:12] LABS: RBC Urine 0-2 (0-2); Red Blood Cell Casts Urine Few; Squamous Epithelial Cell Urine Few (None-Few); WBC Urine 0-2 (0-5)
--- NOTE | 2022-11-03 23:35 | PC.NURSE ---
End of Shift: Patient pleasant and cooperative. Temp max 99.7. O2 sats greater than 90% on room air. Rating pain up to 10/10 in right leg and saying ow and tearful when arms or legs are touched/moved. PRN Oxycodone given x1 and patient able to rest after. Attempted to use BSC with 2 assist and patient unable tolerate sitting at bedside or attempting to stand. Updated MD and Brown placed. Tolerating regular diet with no nausea. Area of pink/redness on right forearm outlined, MD aware.
[2022-11-03] MEDS: LACTATED RINGERS 1000 ML 1,000 ML 125 ML IV (23:37)
[2022-11-04 01:21] VITALS: BP 102/65; PULSE 111; O2SAT 93
[2022-11-04 01:25] LABS: Lactate* 1.4 mmol/L (0.5-1.9)
[2022-11-04] MEDS: PIPERACILLIN/TAZOBACTAM 3.375 GM in 0.9 % SODIUM CHLORIDE Mini-bag 100 ML IVPB ×2 (01:49→07:40)
[2022-11-04 02:45] VITALS: BP 101/56; PULSE 108; RESP 18; TEMP 38.2; O2SAT 91
[2022-11-04] MEDS: OXYCODONE 5 MG TABLET PO ×2 (05:01→10:31)
[2022-11-04] MEDS: MORPHINE 4 MG/ML INJ IVP (05:20)
--- NOTE | 2022-11-04 06:22 | PC.NURSE ---
Shift note: SBP above 100 throughout the night, pt is febrile, triggering sepsis. Treatment in place, monitoring BPs, repositioning and offering pain control. During this shift pt c/o pain 10/10 in her RLE and throughout the back. Pain is so severe that she is unable to move independently in bed. RN treated per eMAR with relief and pt able to rest.
[2022-11-04 07:00] VITALS: BP 103/59; PULSE 100; PULSE 101; PULSE 99; RESP 18; RESP 24; TEMP 37; O2SAT 90; O2SAT 91; O2SAT 94
[2022-11-04] MEDS: POTASSIUM CHLORIDE 10 MEQ CAPSULE ER 20 MEQ PO (07:44)
[2022-11-04] MEDS: 0.9 % SODIUM CHLORIDE 500 ML 500 ML IV (08:09)
[2022-11-04 09:05] LABS: Lactate* 1.1 mmol/L (0.5-1.9)
[2022-11-04 09:08] LABS: Basophils Absolute Auto 0.01 K/uL (0.00-0.30); Basophils Percent Auto 0.2 % (0.0-3.0); Eosinophils Absolute Auto 0.01 K/uL (0.00-0.50); Eosinophils Percent Auto 0.2 % (0.0-7.0); Hematocrit 24.8 % (33.0-51.0); Immature Granulocytes Abs Auto 0.04 K/uL (0.00-0.30); Immature Granulocytes Pct Auto 0.9 %; Lymphocytes Percent Auto 14.1 % (20-44); Mean Corpuscular HGB Conc 32 gm/dL (32-36); Mean Corpuscular Hemoglobin 23 pg (26-34); Mean Corpuscular Volume 74 fL (80-100); Monocytes Percent Auto 20.3 % (0.0-11.0); Neutrophils Percent Auto 64.3 % (42.0-72.0); Platelet Count* 62 K/uL (140-440); RDW Coefficient of Variation % 18.4 % (11.5-15.5); Red Blood Count 3.36 m/uL (4.00-5.20); White Blood Count* 4.67 K/uL (4.50-11.00)
[2022-11-04 09:11] LABS: Hemoglobin* 7.8 gm/dL (12.0-16.0); Slide Review Reflex No
[2022-11-04] MEDS: LACTATED RINGERS 1000 ML 1,000 ML 125 ML IV (09:17)
[2022-11-04] MEDS: ENOXAPARIN 100 MG/ML INJ 90 MG SUBCUT (09:20)
[2022-11-04 09:27] LABS: INR 1.34 (0.91-1.10); Prothrombin Time 17.4 Seconds
[2022-11-04 09:29] LABS: Albumin* 2.5 g/dL (3.3-5.0); Chloride* 104 mmol/L (96-114)
[2022-11-04 09:32] LABS: Alanine Aminotransferase* 29 U/L (4-35); Alkaline Phosphatase* 79 U/L (40-150); Aspartate Amino Transferase* 43 U/L (12-35); Bilirubin Direct* 0.5 mg/dL (0.0-0.5); Blood Urea Nitrogen* 18 mg/dL (7-30); Carbon Dioxide* 22 mmol/L (20-32); Creatinine* 0.5 mg/dL (0.5-1.5); Est. Creatinine Clearance* 109.78; Estimated Glomerular Filt Rate 111 ml/min; Glucose* 166 mg/dL (60-115); Total Protein* 5.5 g/dL (6.0-8.3)
[2022-11-04 09:33] LABS: Calcium* 8.3 mg/dL (8.4-10.6); Uric Acid* 4.4 mg/dL (2.2-8.4)
[2022-11-04 09:48] LABS: Procalcitonin* 4.79 ng/mL (<0.50)
[2022-11-04 09:51] LABS: NT Pro B Type NatriureticPept* 430 pg/mL; Troponin I* < 0.01 ng/mL (0.01-0.04)
[2022-11-04 09:52] LABS: Sodium* 131 mmol/L (135-149)
[2022-11-04 09:53] LABS: Potassium* 3.7 mmol/L (3.6-5.1)
[2022-11-04 10:08] LABS: Hemoglobin A1C* 9.41 % (0-5.6)
--- NOTE | 2022-11-04 10:15 | REH.PT ---
[facility] PT and OT per Dr. Tillman as pt will be transferred to [facility].
--- NOTE | 2022-11-04 11:37 | PC.NURSE ---
Pt very tired this morning. Easy to awaken, verbalizes intense fatigue. BP's soft, low hundreds systolically, HR tachy, low 100's, and urine output 300cc overnight. Dr. Tillman updated and pt given 500cc bolus of NS. Rates pain 8/10 to right leg with movement, she is hardly able to tolerate repositioning. Appears much more comfortable with inactivity. Afebrile. Zosyn infused without difficulty. BG= 177, sliding scale insulin non-administered as pt is not taking in much PO. She declined breakfast tray and had 1-2 bites of icecream. She is tolerating frequent sips of water and has been encouraged to increase fluid intake. Report given to CRICKET Jimenez at [facility]. Pt was transferred to [place] via [facility] at 1045. Family present during transfer period.
--- NOTE | 2022-11-04 16:30 | PM.DS1 ---
DS: Providers Provider Time Seen by Provider: 07:30 Date Seen: 11/04/22 Date of admission: 11/03/22 18:10 Primary care physician: Viky Gan MD Admitting Clinician: Keiko Galo MD Attending Physician on discharge: Norbert Tillman MD Date of Discharge: 11/04/22 DS: Diagnosis Discharge Diagnosis (1) Acute deep vein thrombosis (DVT) of right lower extremity: Status: Acute Problem details: - Lovenox 1 mg/kg given in ED - further anticoagulation to be ordered in the morning pending hemoglobin, platelets, and clinical course (2) Cellulitis of upper extremity: Status: Acute Problem details: - continue to follow clinically, on IV antibiotics - negative ultrasound for DVT/abscess in RUE (3) Cirrhosis of liver with ascites: Status: Acute Problem details: - source unclear, likely IABRRA given DM2 history (4) Splenomegaly: Status: Acute Problem details: - with possible splenic infarction (5) Microcytic anemia: Status: Acute Problem details: - peripheral smear ordered in ED, pending - source unclear; possible hemolytic given splenomegaly and increased reticulocyte count (normal LDH, haptoglobin pending) (6) Thrombocytopenia: Status: Acute Problem details: - no evidence of spontaneous bleeding on Thanksgiving (7) Hypotension: Status: Acute Problem details: - concerning for sepsis vs related to other acute findings - ddx for infectious source: Endocarditis vs RUE cellulitis vs chronic obstructing nephrolithiasis - elevated procalcitonin, normal lactate, elevated temperature - blood cultures pending, Zosyn and Vancomycin initiated 11/03 (8) Right nephrolithiasis: Status: Acute Problem details: - noted on 11/03 imagin mm obstructing calculus right mid ureter causing hydronephrosis and hydroureter; stable when compared to October 16, 2019 DS: Summary Hospital Course Hospital Course: Bryanna Simmons is a 57 year old female who was BIBA to the emergency room today for right knee pain.? Pain started yesterday in increased past 24 hours.? She was unable to control it with rest and Motrin; today she was unable to ambulate given discomfort.? She has no self or family history of blood clots.? She has not had any fevers. ER course and findings: ?- ultrasound reveals occlusive thrombus in both peroneal veins of the right extremity; thrombus also noted in popliteal vein which was partially occlusive ?- CT chest then obtained to evaluate for PE.? This was negative for PE but exhibited ascites and hepatic abnormalities ?- CT Ab/Pelvis then obtained:? Cirrhotic morphology of the liver with evidence of portal HTN, splenomegaly with possible splenic infarcts, ascites, chronic 10 mm obstructive calculus right mid ureter ?- platelets 54, hemoglobin 8.4 with decreased MCV, elevated reticulocyte count ?- INR 1.3, bilirubin 1.2, sodium 130 and potassium 3.3.? Ammonia low ?- given thrombosis and thrombocytopenia, Dr. De Leon in the ED reviewed case with accreditation manager at [facility] to discuss IVC filter.? Unfortunately, no tertiary care beds available in our transfer radius at this time ?- Given 1mg/kg Lovenox in ED prior to transfer to the floor Patient's condition did not improve while here in the hospital. We continue to give intermittent boluses of IV fluids to help address her relative hypotension, tachycardia, and low urine output. Eventually were able to reach the hospitalist at [facility] accepted the patient in transfer. Patient and spouse were agreeable. On further questioning, patient has felt ill for the past month or so, worse in the last few days.? She initially had a COVID infection, followed by influenza.? She then had shingles on her R upper thigh, which has now resolved.? Throughout this time frame she has been very weak, fatigued and diffusely achy (achiness more notable in left shoulder and right distal forearm).? She has not been sleeping well secondary to discomfort.? She has not been eating well over the past couple of weeks, and feels abdominal bloating. Status at Discharge Functional status at discharge: bed bound Overall status at discharge: patient is not back to baseline Time Spent with Patient Time attestation: Total time spent providing and/or coordinating discharge services: Time spent: Greater than 30 minutes Exam Narrative: Exam Narrative: GEN: Alert and appears ill well sitting in bed.? She is able to answer questions appropriately HEENT: Normal external ears, EOMIs bilaterally, no scleral icterus, + or conjunctival pallor CV: RRR, soft systolic murmur noted R: LCTA bilaterally without concerning wheezing, rales, or rhonchi Abdomen:? Positive distension and fluid wave, difficult to evaluate for hepatosplenomegaly given edema and habitus Ext:? 2+ pitting edema bilateral ankles, + Homans sign on right Skin:? Patient has a linear hematoma on the pad of her right thumb.? This area is tender to palpation without crepitus.? She also has a small area of faint erythema and warmth over distal right forearm that is tender to palpation.? No crepitus noted in this region.? No other skin lesions noted on exposed skin Neuro:? No resting tremor, no focal deficits, gait not observed Psych:? Tearful while discussing how poorly she feels, appropriate Const: Vital Signs, click to edit/add: Vital Signs - 24 hr 11/03/22 16:52 11/03/22 17:13 11/03/22 19:00 Temperature 98.4 F 99.7 F H Pulse Rate 92 Pulse Rate [Left P ulse Oximeter] 92 102 H Respiratory Rate 18 18 Blood Pressure [Le ft Arm] 90/61 97/51 L Pulse Oximetry 97 94 Oxygen Delivery Me thod Room Air Room Air 11/03/22 21:48 11/03/22 23:30 11/03/22 23:30 Temperature 98.9 F Pulse Rate 101 H Pulse Rate [Left P ulse Oximeter] 101 H Respiratory Rate Blood Pressure [Le ft Arm] 102/52 L Pulse Oximetry 91 91 Oxygen Delivery Me thod Room Air 11/03/22 23:30 11/03/22 23:30 11/03/22 23:30 Temperature 101.2 F H Pulse Rate Pulse Rate [Left P ulse Oximeter] 102 H 102 H Respiratory Rate 20 20 20 Blood Pressure [Le ft Arm] 102/55 L Pulse Oximetry 91 91 Oxygen Delivery Me thod Room Air Room Air 11/04/22 01:21 11/04/22 02:45 11/04/22 07:00 Temperature 100.8 F H Pulse Rate Pulse Rate [Left P ulse Oximeter] 111 H 108 H Respiratory Rate 18 Blood Pressure [Le ft Arm] 102/65 101/56 L Pulse Oximetry 93 91 91 Oxygen Delivery Me thod Room Air Room Air 11/04/22 07:00 11/04/22 07:00 11/04/22 07:00 Temperature 98.6 F Pulse Rate Pulse Rate [Left P ulse Oximeter] 101 H 99 Respiratory Rate 18 24 24 Blood Pressure [Le ft Arm] 103/59 L Pulse Oximetry 94 90 Oxygen Delivery Me thod Room Air Room Air 11/04/22 07:00 Temperature Pulse Rate 100 Pulse Rate [Left P ulse Oximeter] Respiratory Rate Blood Pressure [Le ft Arm] Pulse Oximetry Oxygen Delivery Me thod Documenting provider has reviewed patient's vital signs: yes DS: Data Data Completed and Pending Labs on day of discharge: Labs from last 24 hours 11/04/22 11/04/22 11/04/22 09:08 08:58 08:58 WBC RBC Hgb Hct MCV MCH MCHC RDW Coeff of Brandi Plt Count Neut % (Auto) Lymph % (Auto) [place] % (Auto) Eos % (Auto) Baso % (Auto) Neut # (Auto) Lymph # (Auto) [place] # (Auto) Eos # (Auto) Baso # (Auto) INR Sodium Potassium Chloride Carbon Dioxide BUN Creatinine Estimated Creat Clear Estimated GFR Glucose Hemoglobin A1c 9.41 H Haptoglobin Pending Lactate 1.1 Uric Acid Calcium Total Bilirubin Direct Bilirubin AST ALT Alkaline Phosphatase Troponin I NT-Pro-B Natriuret Pep Total Protein Albumin Procalcitonin Urine Color Urine Appearance Urine pH Ur Specific [place] Urine Protein Urine Glucose (UA) Urine Ketones Urine Blood Urine Nitrite Urine Bilirubin Urine Urobilinogen Ur Leukocyte Esterase Urine RBC Urine WBC Ur Squamous Epith Cells Urine Bacteria RBC Casts 11/04/22 11/04/22 11/04/22 08:58 08:58 08:58 WBC 4.67 RBC 3.36 L Hgb 7.8 L* Hct 24.8 L MCV 74 L MCH 23 L MCHC 32 RDW Coeff of Brandi 18.4 H Plt Count 62 L Neut % (Auto) 64.3 Lymph % (Auto) 14.1 L [place] % (Auto) 20.3 H Eos % (Auto) 0.2 Baso % (Auto) 0.2 Neut # (Auto) 3.00 Lymph # (Auto) 0.70 L [place] # (Auto) 0.90 Eos # (Auto) 0.01 Baso # (Auto) 0.01 INR 1.34 H Sodium 131 L Potassium 3.7 Chloride 104 Carbon Dioxide 22 BUN 18 Creatinine 0.5 Estimated Creat Clear 109.78 Estimated GFR 111 Glucose 166 H Hemoglobin A1c Haptoglobin Lactate Uric Acid 4.4 Calcium 8.3 L Total Bilirubin 1.0 Direct Bilirubin 0.5 AST 43 H ALT 29 Alkaline Phosphatase 79 Troponin I < 0.01 L NT-Pro-B Natriuret Pep 430 Total Protein 5.5 L Albumin 2.5 L Procalcitonin 4.79 H Urine Color Urine Appearance Urine pH Ur Specific [place] Urine Protein Urine Glucose (UA) Urine Ketones Urine Blood Urine Nitrite Urine Bilirubin Urine Urobilinogen Ur Leukocyte Esterase Urine RBC Urine WBC Ur Squamous Epith Cells Urine Bacteria RBC Casts 11/04/22 11/03/22 11/03/22 01:20 21:42 19:25 WBC RBC Hgb Hct MCV MCH MCHC RDW Coeff of Brandi Plt Count Neut % (Auto) Lymph % (Auto) [place] % (Auto) Eos % (Auto) Baso % (Auto) Neut # (Auto) Lymph # (Auto) [place] # (Auto) Eos # (Auto) Baso # (Auto) INR Sodium Potassium Chloride Carbon Dioxide BUN Creatinine Estimated Creat Clear Estimated GFR Glucose Hemoglobin A1c 9.51 H Haptoglobin Lactate 1.4 Uric Acid Calcium Total Bilirubin Direct Bilirubin AST ALT Alkaline Phosphatase Troponin I NT-Pro-B Natriuret Pep Total Protein Albumin Procalcitonin Urine Color Yellow Urine Appearance Clear Urine pH 5.5 Ur Specific [place] 1.010 Urine Protein 1+ A Urine Glucose (UA) Negative Urine Ketones Trace A Urine Blood Trace-intact A Urine Nitrite Negative Urine Bilirubin Negative Urine Urobilinogen 2.0 A Ur Leukocyte Esterase Negative Urine RBC 0-2 Urine WBC 0-2 Ur Squamous Epith Cells Few Urine Bacteria None RBC Casts Few A 11/03/22 11/03/22 11/03/22 19:25 17:30 17:30 WBC 4.88 RBC 3.63 L Hgb 8.5 L Hct 27.1 L MCV 75 L MCH 23 L MCHC 31 L RDW Coeff of Brandi 18.2 H Plt Count 58 L Neut % (Auto) 82.2 H Lymph % (Auto) 7.2 L [place] % (Auto) 9.4 Eos % (Auto) 0.4 Baso % (Auto) 0.4 Neut # (Auto) 4.00 Lymph # (Auto) 0.40 L [place] # (Auto) 0.50 Eos # (Auto) 0.02 Baso # (Auto) 0.02 INR Sodium Potassium Chloride Carbon Dioxide BUN Creatinine Estimated Creat Clear Estimated GFR Glucose Hemoglobin A1c Haptoglobin Lactate 1.7 Uric Acid Calcium Total Bilirubin Direct Bilirubin AST ALT Alkaline Phosphatase Troponin I NT-Pro-B Natriuret Pep Total Protein Albumin Procalcitonin 9.14 H Urine Color Urine Appearance Urine pH Ur Specific [place] Urine Protein Urine Glucose (UA) Urine Ketones Urine Blood Urine Nitrite Urine Bilirubin Urine Urobilinogen Ur Leukocyte Esterase Urine RBC Urine WBC Ur Squamous Epith Cells Urine Bacteria RBC Casts Preliminary micro results at discharge 11/03/22 17:30 Blood Culture - Preliminary Blood Gram positive cocci in chains 11/03/22 17:16 Blood Culture - Preliminary Blood Gram positive cocci in chains Imaging X-ray right knee: Radiologist's impression: Osteoarthritis most affecting the medial compartment. No acute fracture, dislocation or destructive process. Small joint effusion. Venous duplex ultrasound right lower extremity: Radiologist's impression: Impression: Occlusive thrombus in both peroneal veins. Thrombus is also noted in the popliteal vein which is partially occlusive CT scan - chest: Radiologist's impression: 1. No evidence of pulmonary thromboembolism. 2. Large volume abdominal ascites, splenomegaly and right-sided hydronephrosis. CT scan - abdomen: Radiologist's impression: 1. Cirrhotic morphology of the liver with evidence of portal hypertension and portosystemic communication. 2. Splenomegaly possibly with splenic infarcts. 3. Abdominal and pelvic ascites. 4. 10 mm obstructing calculus right mid ureter causing hydronephrosis and hydroureter; stable when compared to October 16, 2019. Right upper extremity venous duplex ultrasound: Radiologist's impression: Negative for acute DVT in the right upper extremity. Discharge Plan Discharge Disposition: [facility] Date of Admission: 11/03/22 18:10 Attending Provider on Discharge: Norbert Tillman Primary Care Provider: Viky Gan Condition: Unchanged Anticipated Discharge Date/Time: 11/04/22 16:40 Discharge Medications: Continued levothyroxine 25 mcg tablet 12.5 mcg PO Q48H Rx Instructions: Use with 200mcg tabs for total every other day dose of 212.5mcg. levothyroxine 200 mcg tablet 200 mcg PO DAILY glimepiride 1 mg tablet 1 mg PO DAILY metformin 500 mg tablet extended release 24 hr 1,000 mg PO BIDWM rosuvastatin 10 mg tablet 10 mg PO DAILY (DME) lancets [BD Ultra-Fine II Lancets] 30 gauge misc See Rx Instructions .ROUTE Rx Instructions: As directed (DME) blood-glucose meter [Contour Next EZ Meter] Misc See Rx Instructions .ROUTE Rx Instructions: As directed (DME) Contour Next Test Strips Strip See Rx Instructions .ROUTE Rx Instructions: As directed Discontinued aspirin 325 mg tablet,delayed release (DR/EC) 325 mg PO DAILY Discharge Orders: Discharge Order (Routine); Ordered 11/04/22 Ordered By: Norbert Tillman Activity Level: Activity as Tolerated Discharge Diet: Diabetic Follow Up Appointments: Viky Gan MD [Primary Care Provider] - Forms: myTips Info Instructions
[2022-11-06 18:53] LABS: Haptoglobin 185 mg/dL (30-200)
== END 2022-11-04 10:35 | disposition short-term general hospital (02) | DRG 300 ==
LOC: ED 15:40 → MEDSURG 15:55
PROVIDERS: Admitting Provider Family Medicine; Emergency Provider Family Medicine; PCP Family Medicine; Visit Provider Family Medicine
DX: I82.451 Acute embolism and thrombosis of right peroneal vein (principal); K76.6 Portal hypertension; L03.113 Cellulitis of right upper limb; R18.8 Other ascites; N13.2 Hydronephrosis with renal and ureteral calculous obstruction; N13.4 Hydroureter; I82.431 Acute embolism and thrombosis of right popliteal vein; K74.60 Unspecified cirrhosis of liver; E05.00 Thyrotoxicosis with diffuse goiter without thyrotoxic crisis or storm; D69.6 Thrombocytopenia, unspecified; D50.9 Iron deficiency anemia, unspecified; R16.1 Splenomegaly, not elsewhere classified; I95.9 Hypotension, unspecified; D73.5 Infarction of spleen; R74.8 Abnormal levels of other serum enzymes; R00.0 Tachycardia, unspecified; M25.40 Effusion, unspecified joint; E11.65 Type 2 diabetes mellitus with hyperglycemia; Z79.84 Long term (current) use of oral hypoglycemic drugs; Z87.19 Personal history of other diseases of the digestive system; H53.8 Other visual disturbances
CPT/HCPCS: 36415; 71260; 73560; 74176; 80048; 80076; 81003; 81015; 82140; 82728; 83010; 83036; 83540; 83550; 83605; 83615; 83880; 84145; 84484; 84550; 85025; 85045; 85610; 85730; 87040; 87186; 87635; 93005; 93971; 94761; 99284; 99285; A9270; C9113; J1650; J2060; J2270; J2405; J2543; J3370; J7030; J7120; Q9967

== ENCOUNTER 2022-11-04 10:16 | Outpatient (CLI) | payer SELFPAY | END 2022-11-04 10:17 | disposition home or self-care (01) | LOC: AMB 11-08 10:47 | PROVIDERS: PCP Family Medicine; Visit Provider Emergency Medicine Emergency Medical Services | DX: A41.9 Sepsis, unspecified organism (principal); I82.401 Acute embolism and thrombosis of unspecified deep veins of right lower extremity | CPT/HCPCS: A0425; A0426 ==

== ENCOUNTER 2022-12-01 09:43 | Outpatient (CLI) | payer SELFPAY ==
[2022-12-01 12:17] LABS: Albumin* 3.7 g/dL (3.3-5.0); Chloride* 99 mmol/L (96-114)
[2022-12-01 12:18] LABS: Potassium* 3.6 mmol/L (3.6-5.1); Sodium* 134 mmol/L (135-149)
[2022-12-01 12:20] LABS: Alkaline Phosphatase* 183 U/L (40-150); Aspartate Amino Transferase* 31 U/L (12-35); Blood Urea Nitrogen* 15 mg/dL (7-30); Carbon Dioxide* 26 mmol/L (20-32); Creatinine* 0.5 mg/dL (0.5-1.5); Estimated Glomerular Filt Rate 111 ml/min; Total Protein* 7.1 g/dL (6.0-8.3)
[2022-12-01 12:21] LABS: Alanine Aminotransferase* 28 U/L (4-35); Glucose* 152 mg/dL (60-115)
== END 2022-12-01 09:44 | disposition home or self-care (01) ==
LOC: NFLDREF 09:48
PROVIDERS: PCP Family Medicine; Visit Provider Family Medicine
DX: K74.60 Unspecified cirrhosis of liver (principal)
CPT/HCPCS: 80053

== ENCOUNTER 2024-12-06 11:56 | Outpatient (CLI) | payer MEDICAID, SELFPAY ==
--- NOTE | 2024-12-06 12:01 | P.GSCN_ITS ---
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 Images and records from [facility] were reviewed. Her history is that most recently she was admitted to an outside hospital on 11/15/2024 with hypoxia and sepsis. She was found to have strep bacteremia and UTI. She was found to have severe aortic insufficiency. She underwent paracentesis for ascites and had 2.3 L removed. The fluid was sent for cell count and culture which showed no growth. She was eventually discharged home with plans for aortic valve repair; however had recommendations to have dental work done. She is currently on IV Rocephin through a PICC line along with prophylactic oral vancomycin because of a history of recurrent C diff colitis. She was discharged home on 11/22/2024. She follows with [facility] for her liver disease and was recommended to follow-up with them for outpatient paracentesis. She states that after her paracentesis, they were unable to remove all of the fluid because the catheter got pulled out inadvertently and the provider was hesitant to reinsert it. She feels as though her abdomen is becoming more distended. She cannot button her pants. She states she has gained 40 lb in water weight. She is also swollen her legs. She was taken off of her diuretics because of her aortic insufficiency. 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 - Hereditary deficiency of other clotting factors (ICD-10) CVA (cerebral vascular accident) (10/2022) ?I63.9 - Cerebral infarction, unspecified (ICD-10) Sepsis due to Streptococcus, group B (10/2022) ?A40.1 - Sepsis due to streptococcus, group B (ICD-10) Pseudogout (10/2022) ?M11.20 - Other chondrocalcinosis, unspecified site (ICD-10) Cirrhosis of liver not due to alcohol (10/2022) ?K74.60 - Unspecified cirrhosis of liver (ICD-10) Aortic valve endocarditis ?I35.8 - Other nonrheumatic aortic valve disorders (ICD-10) Right nephrolithiasis (10/2022) ?N20.0 - Calculus of kidney (ICD-10) Splenomegaly ?R16.1 - Splenomegaly, not elsewhere classified (ICD-10) Acute deep vein thrombosis (DVT) of right lower extremity (10/2022) ?I82.401 - Acute embolism and thrombosis of unspecified deep veins of right lower extremity (ICD-10) Type 2 diabetes mellitus with albuminuria ?E11.29 - Type 2 diabetes mellitus with other diabetic kidney complication (ICD-10) ?R80.9 - Proteinuria, unspecified (ICD-10) Obesity with body mass index (BMI) of 30.0 to 39.9 ?E66.9 - Obesity, unspecified (ICD-10) Noncompliance ?Z91.199 - Patient's noncompliance with other medical treatment and regimen due to unspecified reason (ICD-10) Malignant neoplasm of breast (2010) ?C50.919 - Malignant neoplasm of unspecified site of unspecified female breast (ICD-10) Graves' disease (1994) ?E05.00 - Thyrotoxicosis with diffuse goiter without thyrotoxic crisis or storm (ICD-10) Dyslipidemia (04/2019) ?E78.5 - Hyperlipidemia, unspecified (ICD-10) Hypothyroid ?E03.9 - Hypothyroidism, unspecified (ICD-10) Surgical History (Updated 12/06/24 @ 11:47 by Carmen Conklin MD) History of abdominal paracentesis ?Z98.890 - Other specified postprocedural states (ICD-10) History of lumpectomy (2010) ?Z98.890 - Other specified postprocedural states (ICD-10) History of 2 sections (2005) ?Z98.891 - History of uterine scar from previous surgery (ICD-10) Family History Father Diabetes Throat cancer Brother Colon cancer Social History (Updated 11/03/22 @ 21:54 by Keiko Galo MD) Narrative: Does not drink alcohol Does not have regular exercise regimen , 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 2 adult daughters Nonsmoker Uninsured Highest level of school completed/degree received: some college, no degree Smoking Status: Never smoker Do you use any of these nicotine containing products: None Second hand tobacco smoke exposure: No How often do you have a drink containing alcohol: never AUDIT-C Alcohol total score: 0 Non-prescribed substance use: denies use Caffeine: No service: No Meds Home Medications and Allergies Home Medications ?Medication ?Instructions ?Recorded ?Confirmed ?Type blood sugar diagnostic (Contour 06/13/22 12/01/22 History Next Test Strips) blood-glucose meter (Contour Next 06/13/22 12/01/22 History EZ Meter) lancets 30 gauge (BD Ultra-Fine II 06/13/22 12/01/22 History Lancets) metformin 500 mg tablet,extended 1,000 mg PO BIDWM 06/13/22 12/01/22 History release 24 hr apixaban 5 mg tablet (Eliquis) 5 mg PO BID 12/01/22 12/01/22 History ceftriaxone 2 gram solution for 1 g IM QDAY 12/01/22 12/01/22 History injection diclofenac sodium 1 % topical gel 2 g topical QID 12/01/22 12/01/22 History furosemide 40 mg tablet 40 mg PO QAM 12/01/22 12/01/22 History insulin NPH isoph U-100 human 100 25 unit subcut QPM 12/01/22 12/01/22 History unit/mL subcutaneous suspension insulin NPH isoph U-100 human 100 35 unit subcut QAM 12/01/22 12/01/22 History unit/mL subcutaneous suspension (Humulin N NPH U-100 Insulin (isophane susp)) lactulose 10 gram/15 mL (15 mL) 30 g PO BID 12/01/22 12/01/22 History oral solution pantoprazole 40 mg tablet,delayed 40 mg PO QDAY 12/01/22 12/01/22 History release spironolactone 100 mg tablet 100 mg PO QAM 12/01/22 12/01/22 History Allergies Allergy/AdvReac Type Severity Reaction Status Date / Time No Known Allergies Allergy Unknown Unverified 12/01/22 09:11 Exam Narrative: Exam Narrative: General: No acute distress CV: Regular rate and rhythm Abdomen: Protuberant. Relatively soft and nontender. No obvious scars. After the patient signed informed consent for paracentesis, using ultrasound guidance, a pocket was identified in the patient's right lateral abdomen. Of note, the patient had diffuse ascites, however there was not a good target as bowel was close to the abdominal wall. The area was prepped and draped sterilely. 1% lidocaine was injected into the skin at the planned site. A finer needle was advanced into the subcutaneous tissue. This was done under ultrasound guidance. The needle was hubbed. I was unable to aspirate any ascitic fluid as the needle was too short to advanced to the patient's abdominal wall. As I pushed to advance the needle with ultrasound guidance, without entering the peritoneal cavity, the small bowel encroached upon the space. I attempted to choose a location slightly more lateral on the abdomen, however the pocket seemed too small to safely proceed. I withdrew the needle and discussed with the patient that I recommended aborting the procedure. A Band-Aid was applied. Results Labs Labs: Labs reviewed. This shows most recently white blood cell count of 2.2. Platelets are chronically low. On 12/03/2024 they were 42. Hemoglobin 10.7. INR on 11/19/2024 was 1.4. Imaging Abdomen CT scan report/results: report reviewed CT scan - chest: image reviewed Additional studies: CT scan of the abdomen and pelvis from 11/16/2024: IMPRESSION: 1. Moderate volume ascites has increased. 2. Circumferential thickening of the proximal colon is likely related to underlying portal hypertension. No bowel obstruction. 3. Cirrhosis and splenomegaly, as before. 4. Cholelithiasis. Distended gallbladder is similar to that of the comparison abdominal CT. No definite CT evidence of cholecystitis. 5. Chronic mild right hydroureteronephrosis persists but has improved. Dictated by Larry Melgoza MD @ 11/16/2024 7:05:19 AM Progress Note:A&P Assessment and plan (1) Portal hypertension: Status: Chronic (2) Ascites: Status: Acute (3) Thrombocytopenia: Status: Acute Plan The patient is 59-year-old female with multiple medical comorbidities, with symptomatic ascites. We discussed the risks and benefits of therapeutic paracentesis. She is at increased risk for bleeding secondary to her coagulopathy from thrombocytopenia and liver disease. She was agreeable to proceed and signed informed consent. Unfortunately, while the patient does have a moderate amount of ascites, this is generally diffusely located through the abdomen. The pocket on the right side was difficult to access and therefore given that her abdomen is soft, I discussed with her waiting until more fluid accumulates prior to attempting paracentesis again. We discussed that paracentesis will not eliminate all of the fluid in her abdomen. It is generally performed for significant abdominal distension and shortness of breath. Is possible that some of her shortness of breath is secondary to aortic insufficiency. Unfortunately she cannot continue on her diuretics because of this. I did reach out to her primary care provider Dr. Choudhury, and we discussed that if the patient continues to accumulate fluid in her abdomen becomes more distended, then repeat paracentesis could be performed. Fortunately she has gone 2 weeks in between paracentesis and she follows up with cardiac surgery at the beginning of December to plan aortic valve repair. We provided the patient with an abdominal binder which will hopefully help support her abdomen. The patient was agreeable with this plan. She will follow up if she develops worsening ascites and distension.
[2024-12-06 12:15] VITALS: BP 114/69; RESP 16; TEMP 36.4
[2024-12-06 12:29] VITALS: BP 122/67; PULSE 94; O2SAT 100
== END 2024-12-06 11:57 | disposition home or self-care (01) ==
PROVIDERS: PCP Family Medicine; Visit Provider Surgery
DX: R18.8 Other ascites (principal); K74.69 Other cirrhosis of liver; K76.6 Portal hypertension; D69.6 Thrombocytopenia, unspecified
CPT/HCPCS: 49083